=== PATIENT | female | born 1980 | race Caucasian/White ===

== ENCOUNTER 2016-11-03 07:30 | Inpatient (IN) ==
[2016-11-03] MEDS ORDERED: CITRIC ACID/SODIUM CITRATE 30 ML UDCUP PO ONE (08:03)
[2016-11-03] MEDS ORDERED: FAMOTIDINE 20 MG/2 ML VIAL IV ONE (08:03)
[2016-11-03 08:22] LABS: Basophils % 0.2 % (0.0-0.8); Eosinophils % 0.3 % (0.00-10.9); Hematocrit 32.8 VOL% (35.7-47.0); Hemoglobin 11.3 GM/DL (12.0-16.0); Immature Granulocytes % 1.8 %; Immature Granulocytes Absolute 0.16 #; Lymphocytes # 1.1 10*3/uL (1.4-4.0); Lymphocytes % 12.4 % (21.3-54.2); Mean Corpuscular HGB Conc 34.5 GM/DL (32-36); Mean Corpuscular Hemoglobin 33 PG (27-34); Mean Corpuscular Volume 94.5 FL (87-102); Mean Platelet Volume 10.2 FL (9.6-12.0); Monocytes # 0.5 10*3/uL (0.11-0.8); Neutrophils # 6.9 10*3/uL (1.4-7.4); Neutrophils % 79.3 % (38.7-73.9); Platelet Count 156 T/CUMM (130-400); Red Blood Count 3.47 MC/CUMM (3.8-5.5); Red Cell Distribution Width 15.8 % (9.3-17.3); White Blood Count 8.7 T/CUMM (4-12)
[2016-11-03] MEDS ORDERED: OXYTOCIN 10 UNIT/ML VIAL IM ONE (08:24)
[2016-11-03] MEDS ORDERED: OXYTOCIN/LR 30 UNIT/1,000 ML BAG IV ONE (08:24)
[2016-11-03] MEDS ORDERED: ceFAZolin 2,000 MG in SODIUM CHLORIDE 0.9% 100 ML IV ONE (08:30)
[2016-11-03 09:00] LABS: Albumin 2.6 G/DL (3.4-5.0); Bilirubin,Total 0.8 MG/DL (0.2-1.0); Osmolality,Calculated 271.7 MOS/KG (273-304); Potassium 3.7 MMOL/L (3.5-5.1); Total Protein 6.5 G/DL (6.4-8.3)
[2016-11-03] MEDS: LACTATED RINGERS 1,000 ML IV SCH ×3 (09:01→15:52)
[2016-11-03] MEDS ORDERED: GLYCOPYRROLATE 0.4 MG/2 ML VIAL ONE (10:56)
[2016-11-03] MEDS ORDERED: ONDANSETRON 4 MG/2 ML VIAL ONE ×2 (10:56→12:34)
[2016-11-03] MEDS ORDERED: PHENYLEPHRINE 1 MG/10 ML SYRINGE IV ONE (10:56)
[2016-11-03 12:06] LABS: Cord Arterial Blood HCO3 22.1 MMOL/L
[2016-11-03 12:08] LABS: Cord Venous Blood HCO3 22.8 MMOL/L; Cord Venous Blood PCO2 37.3 MMHG; Cord Venous Blood PO2 20.9 MMHG
[2016-11-03 12:10] LABS: Apearance,Urine CLEAR (Clear); Bilirubin,Urine Negative (Negative); Blood, Urine Negative (Negative); Glucose,Urine (UA) Negative (Negative); Ketones,Urine 5 mg/dL (Negative); Mucus,Urine Occasional /LPF (Occasional); Nitrite,Urine Negative (Negative); Protein,Urine Negative; RBC,Urine 2 /HPF (0-4); Squamous Epithelial Cell,Urine Occasional /HPF (0-10); Urine Color Yellow (Yellow); Urine Specific Gravity 1.008 (1.001-1.035); Urine Urobilinogen < 2.0 EU/DL (0.2-1.0); WBC,Urine 1 /HPF (0-6)
[2016-11-03] MEDS ORDERED: fentaNYL 100 MCG/2 ML VIAL ONE (12:33)
[2016-11-03] MEDS ORDERED: MORPHINE 10 MG/10 ML VIAL ONE (12:33)
--- NOTE | 2016-11-03 12:33 | OB/GYN History & Physical ---
History of Present Illness Chief complaint: PIH, macrosomia, polyhydramnios History of present illness: Ms. Robles is a 35 year old female 3 para 2 presented with increasing abdominal pain and discomfort. Also shortness of breath. Ultrasound demonstrated estimated weight greater than 10 pounds. Patient's blood pressure on admission is approximately 155/85. Estimated gestational age is 39 weeks. Fetus is very active, heart tones are category 1 risks and benefits were thoroughly discussed and she is in full agreement we will plan on assist section and tubal ligation Home Medications Medication Instructions Recorded Confirmed Type Ferrous Sulfate [Iron] 1 tablet PO BID 09/22/16 11/03/16 History NIFEdipine CAP [Procardia] 1 capsule PO Q6H 10/11/16 11/03/16 History Labetalol Tab [Trandate Tab] 100 mg PO BID 11/03/16 11/03/16 History Allergies Allergy/AdvReac Type Severity Reaction Status Date / Time iodine Allergy ANAPHYLAXIS Verified 10/13/16 10:41 Penicillins Allergy HIVES Verified 10/13/16 10:41 shrimp Allergy ANAPHYLAXIS Verified 10/13/16 10:41 Medical,Surgical,& Family Hx - Medical History Cardio: No history of: Hypertension Psychological: History of: Anxiety Disorders Endocrine: No history of: Diabetes Mellitus (IDDM) Gastrointestinal: History of: GERD - Surgical History Thoracic Surgeries: Patient denies;: Lobectomy - Family History Family History: Reports;: Family Cancer, Family Diabetes, Family Heart Disease, Family Hypertension, Family Stroke - Social History Smoking Status: Never smoker Frequency of Alcohol Use: None Type of 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: 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 General appearance: mild distress - Antepartum / Post Antepartum Exam Cervix - Dilatation: Long thick and closed - Head Head exam: Present: normal inspection - Eye Eye exam: Present: EOMI Pupils: Present: WINSTON - ENT ENT exam: Present: normal exam - Neck Neck exam: Present: normal inspection - Respiratory Respiratory exam: Present: clear to auscultation bilaterally - Breast Breasts: as per HPI Menstruation: as per HPI - Cardiovascular Cardiovascular exam: Present: regular rate and rhythm - GI/Abdominal GI/Abdominal exam: Present: other (Tender along the old incisional scar, fundal height approximately 48) - Extremities Exam Extremities exam: Present: normal inspection - Back Exam Back exam: Present: normal inspection - Neurological Exam Neurological exam: Present: alert, oriented X3, normal gait - Psychiatric Psychiatric exam: Present: normal affect - Skin Skin exam: Present: normal color Assessment and Plan (1) induced hypertension Status: Acute Current Visit: Yes (2) Macrosomia affecting management of mother Status: Acute Current Visit: Yes (3) Polyhydramnios affecting Status: Acute Current Visit: Yes (4) Status post repeat low transverse section Status: Acute Assessment and plan: PIH, polyhydramnios, increasing pelvic pain along the old incisional scar, status post section, patient is prepared for repeat section at 39 weeks gestation risks benefits thoroughly discussed she is in full agreement Current Visit: Yes Results - Labs CBC & BMP: 11/03/16 08:14 11/03/16 08:14
--- NOTE | 2016-11-03 12:38 | Operative Note ---
Date of procedure: 11/03/16 Procedure: Preoperative diagnosis: PIH, macrosomia, repeat section and elective sterilization, polyhydramnios Postoperative diagnosis: Same Anesthesia:[] Regional Estimated blood loss: [] 350 Surgeon: Dr. Hall Findings: [] 10 lbs. 12 oz. male infant, Apgars were 8 and 9, cord blood and cord gas was obtained, estimated blood loss was 350 cc, Complications: None Procedure: Low transverse section bilateral tubal ligation The patient was taken to the operating suite heart tones were obtained prior to and after regional anesthesia was obtained. She was placed in supine position her abdomen was prepped and draped in usual manner for major abdominal surgery. Through an abdominal incision the skin, subcutaneous, fascial layer and peritoneal the abdomen was entered. The bladder flap was created and a low transverse incision was made.. Fluid was clear and normal amount X, Apgars, the placenta was delivered and sent to lab for further evaluation. Injected with intrauterine Pitocin. The first layer of the uterus was closed with #1 Vicryl in a continuous locking manner. Close to imbricate the first layer with #1 Vicryl. The peritoneum was approximated with #2-0 Vicryl.[Bilateral tubal ligation was performed the, the fallopian tube were grasped with a Loretta clamp. The mesosalpinx was perforated. Proximal Diston of tube was ligated. Segment in between was excised. The carotids were then cauterized] All the last sponges and instruments were accounted for -2.) #2-0 Vicryl. Fascia was approximated with #0-0 Maxon.. The skin was approximated with geri. She tolerated procedure well and was taken to recovery room in stable condition. Surgeon / Physician: January Hall Results - Labs CBC & BMP: 11/03/16 08:14 11/03/16 08:14 Discharge Plan - Discharge Medications No Action NIFEdipine CAP [Procardia] 1 capsule PO Q6H Ferrous Sulfate [Iron] 1 tablet PO BID Labetalol Tab [Trandate Tab] 100 mg PO BID - Follow Up or Referral - Forms/Instructions
[2016-11-03] MEDS ORDERED: OXYTOCIN/LR 20 UNIT/1,000 ML BAG IV ONE (12:39)
[2016-11-03] MEDS ORDERED: ONDANSETRON 4 MG/2 ML VIAL IV PRN (12:39)
[2016-11-03] MEDS ORDERED: MAGNESIUM HYDROXIDE SUSP 30 ML UDCUP PO PRN (12:39)
[2016-11-03] MEDS ORDERED: ACETAMINOPHEN 325 MG TABLET PO PRN (12:39)
[2016-11-03] MEDS ORDERED: RHO(D) IMMUNE GLOBULIN 300 MCG SYRINGE IM ONE (12:39)
--- NOTE | 2016-11-03 13:49 | Anesthesia Post-Op ---
Anesthesia Post OP - Post Ansesthetic Evaluation Patient seen in post op: Yes Resp: within normal limits CV: within normal limits Mental: within normal limits Temp: within normal limits Jcxh-Hg-Mgugvlamm: within normal limits Nausea and Vomiting: within normal limits Pain: within normal limits
[2016-11-03] MEDS ORDERED: HYDROmorphone 2 MG/1 ML VIAL IV PRN (16:14)
[2016-11-03 20:17] LABS: Basophils % 0.2 % (0.0-0.8); Eosinophils % 0.2 % (0.00-10.9); Hematocrit 29.8 VOL% (35.7-47.0); Hemoglobin 10.5 GM/DL (12.0-16.0); Immature Granulocytes % 1.2 %; Immature Granulocytes Absolute 0.13 #; Lymphocytes % 9.1 % (21.3-54.2); Mean Corpuscular HGB Conc 35.2 GM/DL (32-36); Mean Corpuscular Hemoglobin 33 PG (27-34); Mean Corpuscular Volume 93.1 FL (87-102); Mean Platelet Volume 9.8 FL (9.6-12.0); Monocytes # 0.6 10*3/uL (0.11-0.8); Monocytes % 5.7 % (1.7-12.7); Neutrophils # 9.1 10*3/uL (1.4-7.4); Neutrophils % 83.6 % (38.7-73.9); Platelet Count 114 T/CUMM (130-400); Red Cell Distribution Width 15.7 % (9.3-17.3); White Blood Count 10.9 T/CUMM (4-12)
[2016-11-03] MEDS: DOCUSATE SODIUM 100 MG CAPSULE PO SCH (23:33)
[2016-11-04] MEDS: LACTATED RINGERS 1,000 ML IV SCH (01:06)
[2016-11-04 06:16] LABS: Basophils % 0.2 % (0.0-0.8); Eosinophils % 0.4 % (0.00-10.9); Hematocrit 28.8 VOL% (35.7-47.0); Hemoglobin 9.8 GM/DL (12.0-16.0); Immature Granulocytes % 1.5 %; Immature Granulocytes Absolute 0.14 #; Lymphocytes # 0.9 10*3/uL (1.4-4.0); Lymphocytes % 9.6 % (21.3-54.2); Mean Corpuscular Hemoglobin 32 PG (27-34); Mean Corpuscular Volume 93.2 FL (87-102); Monocytes # 0.7 10*3/uL (0.11-0.8); Monocytes % 7.6 % (1.7-12.7); Neutrophils # 7.5 10*3/uL (1.4-7.4); Neutrophils % 80.7 % (38.7-73.9); Platelet Count 111 T/CUMM (130-400); Red Blood Count 3.09 MC/CUMM (3.8-5.5); Red Cell Distribution Width 15.8 % (9.3-17.3); White Blood Count 9.3 T/CUMM (4-12)
[2016-11-04] MEDS: SIMETHICONE CHEW 80 MG TABLET PO PRN (10:42)
[2016-11-04] MEDS: MULTIVITAMIN (PRENATAL) TABLET PO SCH (10:42)
[2016-11-04] MEDS: DOCUSATE SODIUM 100 MG CAPSULE PO SCH ×2 (10:43→20:36)
--- NOTE | 2016-11-04 12:03 | OB/GYN Progress Note ---
Assessment and Plan (1) Previous section Status: Acute Assessment and plan: Initiate routine postop orders. 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 Bonding well with . 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 - Constitutional Vitals: Vital Signs Temp Pulse Resp BP Pulse Ox 11/04/16 07:56 97.8 F 82 18 140/78 98 11/04/16 05:00 18 11/04/16 04:00 97.5 F L 81 18 133/72 99 11/04/16 03:00 18 11/04/16 02:00 18 11/04/16 00:00 98.3 F 82 18 131/74 99 11/03/16 20:00 97.6 F 68 18 130/74 99 11/03/16 17:25 85 20 165/85 100 11/03/16 16:25 97.9 F 86 20 139/82 98 General appearance: no acute distress - Antepartum / Post Post Exam Breast: bilateral: normal Abdomen obstetrics: Present: bowel sounds normal Vagina: Present: normal moisture, discharge (light lochia rubra) Uterus exam: Present: enlarged (FF ML ) Anus/Rectum: Present: normal perianal skin - Gyencological / Post Surgical Post Surgical Exam Lungs: bilateral: normal Chest: Normal S1, Normal S2 Extremities 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: Present: normal Abdomen obstetrics progress note: Present: normal appearance Incision OB: Present: normal, dry, intact - Respiratory Respiratory exam: Present: clear to auscultation bilaterally - Cardiovascular Cardiovascular exam: Present: regular rate and rhythm - GI/Abdominal GI/Abdominal exam: Present: normal bowel sounds, soft - Extremities Exam Extremities exam: Present: normal inspection - Back Exam Back exam: Present: normal inspection - Neurological Exam Neurological exam: Present: alert, oriented X3 - Psychiatric Psychiatric exam: Present: normal affect, normal mood - Skin Skin exam: Present: normal color, warm Results - Labs CBC & BMP: 11/04/16 06:03 11/03/16 08:14
[2016-11-04] MEDS: FERROUS SULFATE 325 MG TABLET PO SCH ×2 (14:27→20:36)
[2016-11-04] MEDS: IBUPROFEN 800 MG TABLET PO PRN (16:01)
[2016-11-05] MEDS: IBUPROFEN 800 MG TABLET PO PRN ×3 (00:07→23:28)
[2016-11-05] MEDS: FERROUS SULFATE 325 MG TABLET PO SCH ×2 (09:09→23:12)
[2016-11-05] MEDS: MULTIVITAMIN (PRENATAL) TABLET PO SCH (09:10)
[2016-11-05] MEDS: DOCUSATE SODIUM 100 MG CAPSULE PO SCH ×2 (09:10→23:12)
[2016-11-05] MEDS: SIMETHICONE CHEW 80 MG TABLET PO PRN (09:10)
--- NOTE | 2016-11-05 13:13 | Progress Note ---
Assessment and Plan (1) induced hypertension Status: Acute Current Visit: Yes (2) Macrosomia affecting management of mother Status: Acute Current Visit: Yes (3) Polyhydramnios affecting Status: Acute Current Visit: Yes (4) Status post repeat low transverse section Status: Acute Assessment and plan: PIH, polyhydramnios, increasing pelvic pain along the old incisional scar, status post section, patient is prepared for repeat section at 39 weeks gestation risks benefits thoroughly discussed she is in full agreement Current Visit: Yes Family Medicine PN Sub Interval history: Postop day #2. Status post section. Patient is doing reasonably well. No bowel movement at this time, lots of gas, incision sites intact Extremities well within normal limits neurologically grossly intact We will plan on treating a significant edema with some Lasix at 3 doses. Possible discharge in a.m. Exam (Progress Note) - Constitutional Vitals: Period Temp Pulse Resp BP Sys/Valdovinos Pulse Ox Last 24 Hr 97.1 F-98.5 F 72-91 18-20 129-140/73-82 98-99 Results - Labs CBC & BMP: 11/04/16 06:03 11/03/16 08:14 Quality Measures - VTE Contraindication to Pharmacological VTE Prophylaxis: Clinical assessment deems Pt at low risk, no prophalaxis needed
[2016-11-05] MEDS: FUROSEMIDE 40 MG TABLET PO SCH ×2 (13:26→18:55)
[2016-11-06] MEDS: FUROSEMIDE 40 MG TABLET PO SCH (01:37)
[2016-11-06] MEDS ORDERED: FUROSEMIDE 40 MG TABLET PO SCH (06:00)
[2016-11-06] MEDS: IBUPROFEN 800 MG TABLET PO PRN (08:01)
[2016-11-06] MEDS: FERROUS SULFATE 325 MG TABLET PO SCH (08:01)
[2016-11-06] MEDS: SIMETHICONE CHEW 80 MG TABLET PO PRN (08:02)
[2016-11-06] MEDS: MULTIVITAMIN (PRENATAL) TABLET PO SCH (08:02)
[2016-11-06] MEDS: DOCUSATE SODIUM 100 MG CAPSULE PO SCH (08:02)
[2016-11-06 09:00] VITALS: BP 143/86
--- NOTE | 2016-11-06 09:52 | Discharge Summary ---
Hospital Course - Hospital Course Hospital Course: Ms. Robles presented to the labor department for repeat section due to PIH, polyhydramnios, and severe pelvic pain. The patient had a repeat section with a bilateral tubal ligation. She also had a viable male . She has followed a normal postoperative course and she has done well. Her incision is well approximated without signs of infection. Her fundus is firm and midline. She is voiding without difficulty. Her bleeding is minimal with no odor. She denies any leg pain. She also denies any shortness of breath. Her vital signs and lab values are stable. She is bonding well with her infant. She will be discharged home prescriptions for pain and a follow-up appointment in our office. Diagnosis - Discharge Diagnosis (1) Previous section Status: Acute Specialty Discharge - Follow Up or Referrals Follow up with: January Hall MD [Physician] - 2 Weeks Discharge Plan - Discharge Data Disposition: Disch To Home/Self Care Condition at Discharge: Stable Discharge Diet: advance to your usual diet, regular diet Activity: increase activity as tolerated, no lifting, no prolonged standing Hygiene: may shower Weight Bearing at Discharge: partial weight bearing Driving: not until seen by doctor Contact your physician if you experience:: fever over 101, Shortness of breath, pain uncontrolled by pain medications - Discharge Medications New HYDROcodone/ACETAMIN 5-325 [[place] 5-325] 2 tablet PO Q4H PRN #30 tablet PRN Reason: Pain Severe (8-10) Ibuprofen Tab [Motrin Tab] 800 mg PO Q8H PRN tablet PRN Reason: Pain Severe (8-10) Ferrous Sulfate Tab [Feosol Original Tab] 325 mg PO BID #60 tablet No Action NIFEdipine CAP [Procardia] 1 capsule PO Q6H Ferrous Sulfate [Iron] 1 tablet PO BID Labetalol Tab [Trandate Tab] 100 mg PO BID - Follow Up or Referral - Forms/Instructions Instructions: Section (DC), Depression (GEN), Bleeding (DC) Exam - Constitutional Vitals: Period Temp Pulse Resp BP Sys/Valdovinos Pulse Ox Last 24 Hr 97.1 F-97.9 F 79-90 18-20 127-148/75-86 98-99 General appearance: no acute distress - Head Head exam: Present: normal inspection - Neck Neck exam: Present: normal inspection - Respiratory Respiratory exam: Present: clear to auscultation bilaterally - Cardiovascular Cardiovascular exam: Present: regular rate and rhythm - GI/Abdominal GI/Abdominal exam: Present: normal bowel sounds, soft - Extremities Exam Extremities exam: Present: normal inspection - Neurological Exam Neurological exam: Present: alert, oriented X3 - Psychiatric Psychiatric exam: Present: normal affect, normal mood - Skin Skin exam: Present: normal color, warm DS: Provider Date of admission: 11/03/16 08:03 Primary care physician: Leeroy Gomez MD Attending physician on admission: January Hall MD Consults: 11/03/16 08:33 Consult to Dietitian [CONS] Routine Reason for Dietitian: Dietary Consult 11/03/16 12:40 Consult to Dietetic Tech [CONS] Routine Consult Dietetic Tech: Breast Feeding Discharging clinician: Liv Esparza CNM Expected date of discharge: 11/06/16
--- NOTE | 2016-11-06 18:16 | Pathology Report from [facility] ---
[facility] ACCESSION # : [id number] PATIENT NAME : Radha Robles ORDERING DR : CURTIS HYLTON MD CLINICAL HX: IUP @ 38.6 weeks - Pelvic pain - Pain at old incision site - Macrosomia - Repeat - Desires sterilization POST-OP DX: Same SPECIMEN INFO: #1 Segment of right fallopian tube #2 Segment of left fallopian tube #3 Placenta GROSS DESCRIPTION: #1 Received fresh labeled with the patients name RADHA ROBLES and (A) SEGMENT RT FALLOPIAN TUBE is a 2.5 x 0.7 cm unfimbriated fallopian tube segment. A paper sales representative section submitted in cassette #1.#2 Received fresh labeled with the patients name RADHA ROBLES and (B) SEGMENT LT FALLOPIAN TUBE is a 2.5 x 0.7 cm unfimbriated fallopian tube segment. A paper sales representative section submitted in cassette #2.#3 Received fresh labeled RADHA ROBLES & PLACENTA is a 731 gm placenta measuring 19.5 x 18.0 x 3.2 cm. The membranes are phipps and translucent. The umbilical cord measures 16.0 cm, contains three vessels and is eccentrically inserted. The surface is blue sam and intact. The maternal surface displays mildly disrupted hemorrhagic cotyledons with no abnormalities grossly appreciated upon sectioning. Sections submitted 3A- membranes and cord, 3B- and maternal surfaces. DIAGNOSIS FOR RADHA ROBLES: #1 RIGHT FALLOPIAN TUBE: Complete cross section of fallopian tube.#1 LEFT FALLOPIAN TUBE: Complete cross section of fallopian tube.#3 PLACENTA, 38.6 WEEKS GESTATIONAL AGE, DELIVERY: Mature placenta, 731 grams trimmed weight. Acute chorioamnionitis. Tri-vascular umbilical cord, 16 cm in length, with early acute phlebitis. COLLECTED DATE: 11/03/2016 [facility] REPORT DATE: 11/06/2016 ELECTRONICALLY SIGNED BY: Caitlyn Leblanc M.D. 11/06/2016 - 12:01:53 ALEYDA
== END 2016-11-06 12:15 | disposition home or self-care (01) | DRG 765 ==
LOC: EDSTATUS 07:30 → N.LDOUT 07:34 → N.LD 07:35 → N.OB 16:12
PROVIDERS: ADMIT Obstetrics & Gynecology; ATTEND Obstetrics & Gynecology